=== PATIENT | female | born 1970 | race Caucasian/White ===

== ENCOUNTER 2016-10-14 08:28 | Day surgery (SDC) | payer OTHER ==
[~2016-10-14] VITALS: Ht 167.6 cm; Wt 46.5 kg
[2016-10-14] VITALS (12 sets, daily range): BP systolic 81–140; BP diastolic 58–104; PULSE 56–93; RESP 16–40; Ht 167.6 cm; Wt 46.5 kg
[~2016-10-14 08:28] MED LIST: CEFAZOLIN 2 GM/50 ML (PMX) 50 ML IVPB SCH; LORA-444 PO; MIRT30TA PO; SOD CHLORIDE 0.9% 1,000 ML IV SCH
[2016-10-14] MEDS ORDERED: HYDROmorphONE (0.2 MG/ML) 10ML SYG IV PRN ×3 (10:00)
[2016-10-14] MEDS ORDERED: MEPERIDINE 25 MG INJ IV PRN (10:00)
[2016-10-14] MEDS ORDERED: ONDANSETRON 4 MG INJ IV PRN (10:00)
[2016-10-14] MEDS ORDERED: FENTAnyl 50 MCG/ML VIAL IV PRN ×2 (10:00)
[2016-10-14 10:01] LABS: BASOPHIL # 0.1 10^3/ul (0.0-0.1); BASOPHILS % 1.3 % (0.0-2.0); EOSINOPHILS # 0.1 10^3/ul (0.0-0.5); EOSINOPHILS % 1.7 % (0.0-7.0); HEMATOCRIT 34.7 % (37.0-47.0); HEMOGLOBIN 11.8 g/dl (12.0-16.0); INR 0.99; LYMPHOCYTES # 2.6 10^3/ul (0.8-2.9); LYMPHOCYTES % 44.7 % (15.0-51.0); MEAN CORPUSCULAR HEMOGLOBIN 31.7 pg (29.0-33.0); MEAN CORPUSCULAR HGB CONC 34.1 g/dl (32.0-37.0); MEAN CORPUSCULAR VOLUME 92.9 fl (82.0-101.0); MONOCYTE # 0.4 10^3/ul (0.3-0.9); NEUTROPHIL # 2.7 10^3/ul (1.6-7.5); NEUTROPHILS % 45.3 % (39.0-77.0); PLATELET COUNT 561 10^3/UL (140-440); PROTIME 13.1 Sec (12.2-14.2); RED BLOOD COUNT 3.74 10^6/ul (4.20-5.40); RED CELL DISTRIBUTION WIDTH 13.3 % (11.5-14.5); UNCORRECTED WBC 5.9 10^3/ul (4.8-10.8); WHITE BLOOD COUNT 5.9 10^3/ul (4.8-10.8)
[2016-10-14 10:02] LABS: PARTIAL THROMBOPLASTIN TIME 31.6 Sec (25.0-35.0)
[2016-10-14] MEDS ORDERED: PROPOFOL 20 ML ONE (10:04)
[2016-10-14] MEDS ORDERED: ONDANSETRON 4 MG INJ ONE (10:04)
[2016-10-14] MEDS ORDERED: FENTAnyl 50 MCG/ML VIAL ONE (10:04)
[2016-10-14] MEDS ORDERED: METOCLOPRAMIDE 10 MG INJ ONE (10:04)
[2016-10-14] MEDS ORDERED: SUCCINYLCHOLINE CHLORIDE 100 MG/5 ML SYG IV ONE (10:04)
[2016-10-14] MEDS ORDERED: ROCURONIUM 50 MG INJ ONE (10:04)
[2016-10-14 10:06] LABS: CONDITION 1
[2016-10-14 10:24] LABS: CREATININE 0.88 mg/dl (0.44-1.00); POTASSIUM 3.8 mmol/L (3.5-5.1)
[2016-10-14] MEDS ORDERED: LIDOCAINE 1% (MDV) 20 ML INJ ONE (10:48)
[2016-10-14] MEDS ORDERED: CEFAZOLIN 1 GM INJ ONE (10:48)
--- NOTE | 2016-10-14 13:24 | OPR ---
DATE OF OPERATION: 10/14/2016 PREOPERATIVE DIAGNOSIS: Right abdominal wall mass. POSTOPERATIVE DIAGNOSIS: Right abdominal wall mass. OPERATION PERFORMED: Resection of right abdominal wall mass. ANESTHESIA: General. ANESTHESIOLOGIST: Phillip Self MD SURGEON: Armani Naik MD VAMP MARKER: None. INDICATIONS FOR PROCEDURE: The patient is a 46-year-old female who presented with an enlarging mass in the lateral aspect of her right abdominal wall, approximately 4 to 5 cm below her right 12th rib , clinically consistent with a probable lipoma. She was counseled as to the risks versus benefits o f resection. She consented and was scheduled for surgery. DESCRIPTION OF PROCEDURE: The patient was brought to the operating theater and placed under general anesthesia. The abdomen was prepped and draped in the usual sterile fashion. An oblique incision was made directly over the mass for a distance of approximately 4 cm. The subcutaneous tissue was d issected with cautery. In the subcutaneous space a well-circumscribed mass consistent with a probab le lipoma was identified. It was meticulously dissected from the surrounding tissue, removed and se nt for permanent pathologic analysis. The wound was irrigated. Minimal bleeding was controlled wit h cautery. The area was then infiltrated with 1% lidocaine local anesthetic with epinephrine. The skin was then reapproximated with a 4-0 Monocryl suture in subcuticular fashion. Benzoin and Steri- Strips were applied. The patient tolerated the procedure well. Estimated blood loss was 10 mL. Th ere were no complications and the patient was transported in stable condition to the recovery room. Dictated By: ARMANI NAIK MD TL/[place] Conf#: [id number] DID#: [id number]
== END 2016-10-14 23:00 | disposition home or self-care (01) ==
LOC: SDS 08:28
PROVIDERS: ATTEND Surgery Surgical Oncology
DX: D17.1 Benign lipomatous neoplasm of skin and subcutaneous tissue of trunk (principal); E78.5 Hyperlipidemia, unspecified
CPT/HCPCS: 11406; 80048; 84703; 85025; 85610; 85730; 88307; J0330; J0690; J2405; J2765; J3010; Z7512; Z7610